=== PATIENT | male | born 1965 | race Two or more races ===

== ENCOUNTER 2022-07-15 14:29 | Emergency (ER) | payer BC, OTHER ==
[~2022-07-15] VITALS: Ht 165.1 cm; Wt 81.9 kg
[2022-07-15 15:15] VITALS: BP 134/83
[2022-07-15] MEDS ORDERED: TETANUS-DIPTH-ACEL PERTUSSIS 0.5ML SYR Tdap IM ONE (16:00)
[2022-07-15] MEDS ORDERED: CEPH-510 PO (16:41)
== END 2022-07-15 23:00 | disposition home or self-care (01) ==
LOC: ER 14:29
DX: S61.012A Laceration without foreign body of left thumb without damage to nail, initial encounter (principal); W26.8XXA Contact with other sharp object(s), not elsewhere classified, initial encounter; Y93.89 Activity, other specified; Y92.89 Other specified places as the place of occurrence of the external cause; Y99.8 Other external cause status
CPT/HCPCS: 12002; 73130; J2001